=== PATIENT | male | born 1975 | race Caucasian/White ===

== ENCOUNTER 2018-01-09 14:03 | Emergency (ER) | payer BC, OTHER ==
[~2018-01-09] VITALS: Ht 182.9 cm; Wt 188.8 kg
[2018-01-09 14:33] LABS: HEMATOCRIT 44.7 % (38.0-50.0); HEMOGLOBIN 15.4 G/DL (12.5-16.6); MCH 29.8 PG (29.0-34.0); MCHC 34.5 G/DL (30.0-36.0); MCV 86.6 FL (86-99); PLATELET COUNT 281 K/uL (156-360); RBC DIS.WIDTH-CV 13.7 % (11.8-14.6); RBC DIS.WIDTH-SD 43.8 % (39-53); RED BLOOD COUNT 5.16 M/uL (4.00-5.50); WHITE BLOOD COUNT 12.6 K/uL (4.1-10.2)
[2018-01-09 14:41] LABS: CHLORIDE 101 mEq/L (99-109); POTASSIUM 4.3 mEq/L (3.7-5.4); SODIUM 137 mEq/L (136-147)
[2018-01-09 14:42] LABS: GLUCOSE 129 mg/dL (70-99)
[2018-01-09 14:46] LABS: GFR ESTIMATE (CALCULATED) > 59 mL/min/ (58.99-99999)
[2018-01-09 14:47] LABS: UREA NITROGEN (BUN) 10 mg/dL (9-23)
[2018-01-09 14:53] LABS: TROP-I INTERPRETATION NEGATIVE; TROPONIN-I < 0.01 ng/mL (0.0-0.30)
[2018-01-09 16:21] LABS: TROP-I INTERPRETATION NEGATIVE; TROPONIN-I < 0.01 ng/mL (0.0-0.30)
[2018-01-09 17:24] VITALS: BP 148/80
== END 2018-01-09 17:28 | disposition home or self-care (01) ==
LOC: EME 14:03
PROVIDERS: Emergency Medicine
DX: R07.9 Chest pain, unspecified (principal); E11.9 Type 2 diabetes mellitus without complications; E78.5 Hyperlipidemia, unspecified; I10 Essential (primary) hypertension
CPT/HCPCS: 80048; 84484; 85027; 93005; 99281; 99284

== ENCOUNTER → 2018-02-04 | Outpatient (CLI) | payer BC, OTHER | END | disposition home or self-care (01) | LOC: NUC 08:30 | DX: R94.39 Abnormal result of other cardiovascular function study (principal); R00.2 Palpitations; I10 Essential (primary) hypertension; E78.2 Mixed hyperlipidemia; E11.9 Type 2 diabetes mellitus without complications | CPT/HCPCS: 78452; 78999; 93017; A9500 ==

== ENCOUNTER 2018-03-19 21:38 | Inpatient (IN) | payer BC, OTHER ==
[~2018-03-19] VITALS: Ht 182.9 cm; Wt 180.5 kg
[~2018-03-19 21:38] MED LIST: LOTREL 10/41 CAPSULE PO; MEN'S MULTI-VI1 EACH PO; MEVACOR40 MG PO; MOTRIN800 MG PO; TURMERIC500 MG PO
[2018-03-20 06:40] VITALS: BP 133/73
[2018-03-20 12:58] VITALS: BP 169/82
[2018-03-20 15:30] VITALS: BP 143/71
[2018-03-20 19:51] VITALS: BP 160/77
[2018-03-20 23:24] VITALS: BP 137/70
[2018-03-21 04:10] VITALS: BP 125/62
[2018-03-21 06:48] LABS: HEMATOCRIT 41.5 % (38.0-50.0); HEMOGLOBIN 13.6 G/DL (12.5-16.6); MCH 29.1 PG (29.0-34.0); MCHC 32.8 G/DL (30.0-36.0); MCV 88.9 FL (86-99); PLATELET COUNT 267 K/uL (156-360); RBC DIS.WIDTH-CV 14.4 % (11.8-14.6); RBC DIS.WIDTH-SD 46.9 % (39-53); RED BLOOD COUNT 4.67 M/uL (4.00-5.50)
[2018-03-21 07:07] LABS: CHLORIDE 102 MEQ/L (99-109); GFR ESTIMATE (CALCULATED) > 59 mL/min/ (58.99-99999); GLUCOSE 118 mg/dL (70-99); POTASSIUM 4.4 MEQ/L (3.7-5.4); SODIUM 138 MEQ/L (136-147); UREA NITROGEN (BUN) 9 mg/dL (9-23)
[2018-03-21 07:49] VITALS: BP 145/76
[2018-03-21 11:48] VITALS: BP 160/78
[2018-03-21 15:25] VITALS: BP 151/71
[2018-03-21] MEDS ORDERED: ACTIGALL300 MG PO (17:06)
[2018-03-21] MEDS ORDERED: PRILOSEC20 MG PO (17:06)
[2018-03-21] MEDS ORDERED: DILAUDID4 MG PO (17:06)
[2018-03-21] MEDS ORDERED: ZOFRAN ODT8 MG PO (17:06)
[2018-03-21] MEDS ORDERED: COLACE100 MG PO (17:06)
== END 2018-03-21 17:40 | disposition home or self-care (01) | DRG 621 ==
LOC: ENRESERV 21:38 → 2SOUTH 03-20 05:39 → ENRESERV 03-20 11:42 → 2EAST 03-20 12:34 → 2SOUTH 03-20 13:10 → ENPENDDIS 03-21 17:10 → 2EAST 03-21 17:40
PROVIDERS: Surgery
PROC: 0DB64Z3 Excision of Stomach, Percutaneous Endoscopic Approach, Vertical (ICD-10-PCS; principal; 2018-03-20)
DX: E66.01 Morbid (severe) obesity due to excess calories (principal); Z68.43 Body mass index [BMI] 50.0-59.9, adult; G47.33 Obstructive sleep apnea (adult) (pediatric); E78.5 Hyperlipidemia, unspecified; I10 Essential (primary) hypertension; E11.65 Type 2 diabetes mellitus with hyperglycemia
CPT/HCPCS: 80048; 82948; 85025; 85027; 86850; 86900; 86901; 88300; C9113; J0330; J1170; J1644; J2405; J2710; J3010; J3480; J7643; S0074